=== PATIENT | male | born 1950 | race Caucasian/White ===

== ENCOUNTER 2018-04-03 18:56 | Observation (INO) ==
--- NOTE | 2018-04-03 19:51 | ED ---
HPI General Chief Complaint: Chest Pain Stated Complaint: chest pain Time Seen by Provider: 04/03/18 19:32 History of Present Illness HPI narrative: 67-year-old male with a past medical history of hypertension, coronary disease, peripheral artery disease and a long history of smoking presents to the emergency room complaining of chest pain that started at 1 PM today pain was midsternal radiating to the back with shortness of breath, palpitations, nausea, lightheadedness. Upon arrival to the ER patient denies chest pain at the moment. Patient was doing exertional work at home. 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 Complete Quality Measures for STEMI Alert Patients Related Data Home Medications Medication Instructions Recorded Confirmed Aspir-81 81 mg PO DAILY 04/03/18 04/03/18 amlodipine 5 mg PO HS 04/03/18 04/03/18 atorvastatin 20 mg PO HS 04/03/18 04/03/18 carvedilol 6.25 mg PO BID 04/03/18 04/03/18 clopidogrel 75 mg PO HS 04/03/18 04/03/18 losartan 100 mg PO HS 04/03/18 04/03/18 vit C-vit V-bjpeao-dhf-om-3 1 cap PO DAILY 04/03/18 04/03/18 [Ocuvite] Allergies Allergy/AdvReac Type Severity Reaction Status Date / Time No Known Allergies Allergy Unverified 04/03/18 19:08 Review of Systems Constitutional Denies fever(s) Eyes Denies change in vision ENT Denies headache(s) and Denies nasal congestion Cardiovascular Reports chest pain, Reports chest pain with activity, Reports rapid heart rate, Reports lightheadedness and Reports dyspnea Respiratory Denies dyspnea Gastrointestinal Denies abdominal pain Genitourinary Denies difficulty urinating Musculoskeletal Denies myalgias Integumentary/Breasts Denies rash Neurologic Denies headache(s) Psychiatric Denies depression Endocrine Denies polyuria Hematologic/Lymphatic Denies easy bruising [facility] Medical History Medical History AAA (abdominal aortic aneurysm) (Acute) Atrial fibrillation (Acute) Back pain (Acute) Bronchitis (Acute) Cataract (Acute) Chest pain (Acute) Coronary artery disease (Acute) Dental decay (Acute) Diverticulitis (Acute) Hypertension (Acute) Myocardial infarction (Acute) Snoring (Acute) Surgical History Surgical History History of coronary artery stent placement (Acute) Hx of cardiac cath (Acute) Social History Social History Substance History: No History of Abuse Second Hand Smoke Exposure: No Smoking Status: Heavy tobacco smoker Tobacco Type: Cigarettes How Often Do You Have a Drink Containing Alcohol: 4 or more times a week Recent Travel in [facility] within the Last 8 Weeks: No Recent Out of Country Travel within the Last 8 Weeks: No Immunization History Tetanus Immunization: <5 Years Hx Influenza Vaccine This Season: Yes Exam Narrative Exam Narrative: GENERAL: Patient is alert and oriented -3 SKIN: Focused skin assessment warm/dry. HEAD: Atraumatic. Normocephalic. EYES: Pupils equal and round. No scleral icterus. No injection or drainage. ENT: No nasal bleeding or discharge. Mucous membranes pink and moist. NECK: Trachea midline. No JVD. CARDIOVASCULAR: Regular rate and rhythm. No murmur appreciated. RESPIRATORY: No accessory muscle use. Clear to auscultation. Breath sounds equal bilaterally. GASTROINTESTINAL: Abdomen soft, non-tender, nondistended. Hepatic and splenic margins not palpable. MUSCULOSKELETAL: No obvious deformities. No clubbing. No cyanosis. No edema. NEUROLOGICAL: Awake and alert. No obvious cranial nerve deficits. Motor grossly within normal limits. Normal speech. PSYCHIATRIC: Appropriate mood and affect; insight and judgment normal. Course Reevaluation(s) Reevaluation #1: pt denies chest pain Time: 20:54 Initial Documented Vital Signs Temperature 98.5 F 04/03/18 19:08 Pulse Rate 78 04/03/18 19:08 Respiratory Rate 18 04/03/18 19:08 Blood Pressure 128/75 04/03/18 19:08 Pulse Oximetry 97 04/03/18 19:08 Last Documented Vital Signs Temperature 98.5 F 04/03/18 19:08 Pulse Rate 78 04/03/18 19:08 Respiratory Rate 18 04/03/18 19:08 Blood Pressure 128/75 04/03/18 19:08 Pulse Oximetry 97 04/03/18 19:08 Medical Decision Making MDM Narrative Medical decision making narrative: During the hospital course chest pain-free in the ED and had a negative cardiac workup.I will admit the patient to the chest pain center for observation and to rule out acute coronary artery disease Lab Data Result diagrams: 04/03/18 19:00 04/03/18 19:00 Lab Results 04/03/18 04/03/18 04/03/18 Range/Units 19:00 19:00 19:00 CBC w Diff Auto diff final WBC 8.1 (4.0-11.0) th/mm3 RBC 4.30 L (4.50-5.90) mil/mm3 Hgb 14.4 (13.0-17.0) gm/dL Hct 42.6 (39.0-51.0) % MCV 99.0 (80.0-100.0) fL MCH 33.6 (27.0-34.0) pg MCHC 34.0 (32.0-36.0) % RDW 12.8 (11.6-17.2) % Plt Count 198 (150-450) th/mm3 MPV 10.4 (7.0-11.0) fL Neut % (Auto) 62.3 (16.0-70.0) % Lymph % (Auto) 27.0 (9.0-44.0) % [place] % (Auto) 7.7 (0.0-8.0) % Eos % (Auto) 2.7 (0.0-4.0) % Baso % (Auto) 0.3 (0.0-2.0) % Neut # (Auto) 5.1 (1.8-7.7) th/mm3 Lymph # (Auto) 2.2 (1.0-4.8) th/mm3 [place] # (Auto) 0.6 (0.0-0.9) th/mm3 Eos # (Auto) 0.2 (0.0-0.4) th/mm3 Baso # (Auto) 0.0 (0.0-0.2) th/mm3 WBC Differential . Differential Comment . PT 10.7 (9.8-11.6) sec INR 1.1 Ratio APTT 25.2 (24.3-30.1) sec Sodium 140 (136-145) meq/L Potassium 3.9 (3.5-5.1) meq/L Chloride 108 H (98-107) meq/L Carbon Dioxide 23.1 (21.0-32.0) meq/L Anion Gap 9 (5-15) meq/L BUN 29 H (7-18) mg/dL Creatinine 1.20 (0.60-1.30) mg/dL Estimated GFR 60 L (>89) mL/min Random Glucose 96 (74-106) mg/dL Calcium 8.8 (8.5-10.1) mg/dL Magnesium 2.3 (1.5-2.5) mg/dL Total Creatine Kinase 106 (39-308) U/L CK-MB (CK-2) 2.4 (0.5-3.6) ng/mL Troponin I Less than 0.02 L (0.02-0.05) ng/mL Imaging Data Radiologist's impression: Chest X-Ray 04/03/18 19:41 CONCLUSION: The lungs are clear. Discharge Plan Discharge Disposition Patient Disposition: Transfer to [facility] Discharge Condition Condition: Fair Discharge Details Discharge Comment: Case was discussed with Dr. Flannery patient was admitted to the chest pain center Diagnosis: Chest pain Physicians Team ED Provider: Roni Ellis Primary Care Provider: Primary Care Massiel López Rxs /Orders / Referrals /Forms Prescriptions: No Action Aspir-81 81 mg PO DAILY RF: 0 carvedilol 6.25 mg Tablet 6.25 mg PO BID RF: 0 atorvastatin 20 mg Tablet 20 mg PO HS RF: 0 clopidogrel 75 mg Tablet 75 mg PO HS RF: 0 amlodipine 5 mg Tablet 5 mg PO HS RF: 0 losartan 100 mg Tablet 100 mg PO HS RF: 0 vit C-vit P-hexueh-yjm-om-3 [Ocuvite] 500-92-7-150 fm-rwie-ka-mg Capsule 1 cap PO DAILY RF: 0 Discharge Instructions Patient Printed Instructions: Chest Pain (ED) Status ED Status: With Doctor
--- NOTE | 2018-04-03 19:58 | XR ---
EXAM DATE: 04/03/2018 7:52 PM EDT AGE/SEX: 67 years / Male INDICATIONS: . Chest heaviness and feeling light headed. CLINICAL DATA: This is the patient's initial encounter. Patient reports that signs and symptoms have been present for 1 day and indicates a pain score of 0/10. MEDICAL/SURGICAL HISTORY: None. None. COMPARISON: POI, XR CHEST PA AND LAT, 08/17/2016. . FINDINGS: A single AP view of the chest demonstrates the lungs to be symmetrically mildly hyperaerated without evidence of mass, infiltrate or effusion. No evidence of pneumothorax. The cardiomediastinal contour s are unremarkable. Osseous structures are intact. CONCLUSION: The lungs are clear. Electronically signed by: Jose A Guidyr MD 04/03/2018 7:56 PM EDT
[2018-04-03 20:15] LABS: Baso % (Auto) 0.3 % (0.0-2.0); Eos # (Auto) 0.2 th/mm3 (0.0-0.4); Eos % (Auto) 2.7 % (0.0-4.0); Hematocrit 42.6 % (39.0-51.0); Hemoglobin 14.4 gm/dL (13.0-17.0); Lymph # (Auto) 2.2 th/mm3 (1.0-4.8); Mean Corpuscular Hemoglobin 33.6 pg (27.0-34.0); Mean Platelet Volume 10.4 fL (7.0-11.0); Mono # (Auto) 0.6 th/mm3 (0.0-0.9); Mono % (Auto) 7.7 % (0.0-8.0); Neut # (Auto) 5.1 th/mm3 (1.8-7.7); Neut % (Auto) 62.3 % (16.0-70.0); Platelet Count 198 th/mm3 (150-450); Red Cell Distribution Width 12.8 % (11.6-17.2); White Blood Count 8.1 th/mm3 (4.0-11.0)
[2018-04-03 20:26] LABS: Chloride 108 meq/L (98-107); Potassium 3.9 meq/L (3.5-5.1); Sodium 140 meq/L (136-145)
[2018-04-03 20:28] LABS: Calcium 8.8 mg/dL (8.5-10.1)
[2018-04-03 20:29] LABS: Anion Gap 9 meq/L (5-15); Blood Urea Nitrogen 29 mg/dL (7-18); Carbon Dioxide 23.1 meq/L (21.0-32.0); Glucose,Random 96 mg/dL (74-106); Magnesium 2.3 mg/dL (1.5-2.5)
[2018-04-03 20:32] LABS: Activated Partial Thrombo Time 25.2 sec (24.3-30.1); INR 1.1 Ratio; Prothrombin Time 10.7 sec (9.8-11.6)
[2018-04-03 20:33] LABS: Glomerular Filtration Rate 60 mL/min (>89)
[2018-04-03 20:36] LABS: Creatine Kinase 106 U/L (39-308)
[2018-04-03 20:48] LABS: Creatine Kinase MB 2.4 ng/mL (0.5-3.6)
[2018-04-03] MEDS ORDERED: Morphine Inj 4 MG/ML Vial IV.PUSH PRN (21:02)
[2018-04-03] MEDS ORDERED: Acetaminophen 500 MG Tablet PO PRN (21:02)
[2018-04-03] MEDS: Sod Chloride 0.9% Inj 1,000 ML IV.CONT SCH (22:03)
[2018-04-03 22:47] LABS: Troponin I 0.18 ng/mL (0.02-0.05)
[2018-04-04 01:51] LABS: Troponin I 0.19 ng/mL (0.02-0.05)
[2018-04-04] MEDS: Sod Chloride 0.9% Inj 1,000 ML IV.CONT SCH ×2 (08:13→18:43)
[2018-04-04] MEDS ORDERED: Heparin Drip 25,000 UNIT/250 ML BAG IV.CONT PRN (08:55)
[2018-04-04] MEDS ORDERED: Heparin 10,000 UNITS/10 ML Vial (for IV use) IV.PUSH STA (08:55)
[2018-04-04] MEDS ORDERED: Carvedilol 6.25 MG Tablet PO SCH (09:00)
[2018-04-04 09:27] LABS: Hematocrit 39.1 % (39.0-51.0); Hemoglobin 13.1 gm/dL (13.0-17.0); Mean Corpuscular HGB Conc 33.5 % (32.0-36.0); Mean Corpuscular Hemoglobin 33.8 pg (27.0-34.0); Mean Platelet Volume 9.4 fL (7.0-11.0); Platelet Count 151 th/mm3 (150-450); Red Blood Count 3.87 mil/mm3 (4.50-5.90); Red Cell Distribution Width 12.4 % (11.6-17.2); White Blood Count 5.4 th/mm3 (4.0-11.0)
[2018-04-04 09:35] LABS: Activated Partial Thrombo Time 24.8 sec (24.3-30.1); INR 1.1 Ratio
[2018-04-04] MEDS ORDERED: fentaNYL Citrate Inj 100 MCG/2 ML Ampul IV.PUSH SCH (12:00)
[2018-04-04] MEDS ORDERED: Sod Chloride 0.9% Inj 1,000 ML IV.CONT SCH ×2 (12:00→18:00)
--- NOTE | 2018-04-04 14:34 | P.HP ---
History of Present Illness Primary Care Physician: No Primary Care Physician History of Present Illness: 67-year-old male with a past medical history of hypertension, coronary artery disease, peripheral artery disease and a long history of smoking presents to the emergency room complaining of chest pain that started at 1 PM. The pain was midsternal radiating to the back. associated with shortness of breath, palpitations, nausea, lightheadedness. Patient denies chest pain at the moment. However he endorses chest pressure which has significantly improved. Patient was doing exertional work at home. Patient took 181 mg aspirin at home and 3x 81 mg aspirin on arrival. 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 Patient had cardiac cath with Dr Jensen in 2016 and had stent placed. plan for cardiac cath by Dr Jensen today Inpatient Certification: I certify that the inpatient services were ordered in accordance with Medicare regulations governing the order. This includes certification that hospital inpatient services are reasonable and necessary and in the case of services not specified as inpatient-only under 42 CFR 419.22(n), that they are appropriately provided as inpatient services in accordance to with the 2-midnight benchmark under 43 CFR 412.3(e) Review of Systems All other systems reviewed negative except as stated in HPI PMFSH - History History Provided By: Patient - Medical History Medical History: Medical History (Last Reviewed 04/04/18 @ 14:37 by Lizzy Chilel MD) AAA (abdominal aortic aneurysm) Atrial fibrillation Back pain Bronchitis Cataract Chest pain Coronary artery disease Dental decay Diverticulitis Hypertension Myocardial infarction Snoring - Surgical History Surgical History: Surgical History (Last Reviewed 04/04/18 @ 14:37 by Lizzy Chilel MD) History of coronary artery stent placement Hx of cardiac cath - Family History Family History: Family History (Last Updated 04/04/18 @ 17:03 by Lizzy Chilel MD) Other HLD (hyperlipidemia) HTN (hypertension) - Tobacco History Second Hand Smoke Exposure: Yes Tobacco Use In Past 30 Days: No Smoking Status: Heavy tobacco smoker Tobacco Type: Cigarettes - Alcohol History How Often Do You Have a Drink Containing Alcohol: 4 or more times a week - Substance Use History Substance History: No History of Abuse - Travel History Recent Travel in the [place] Within the Last 8 Weeks: No Recent Travel Out of the Country Within the Last 8 Weeks: No - Immunization History Tetanus Immunization: <5 Years Hx Influenza Vaccine This Season: Yes Medications and Allergies Active Medications: Active Medications Acetaminophen (Tylenol) 500 mg PO Q4H PRN PRN Reason: HEADACHE Hydrocodone Bitart/Acetaminophen ([place] 7.5/325) 1 tab PO Q4H PRN PRN Reason: PAIN SCALE 1 TO 7 Amlodipine Besylate (Norvasc) 5 mg PO HS [facility] Aspirin (Aspirin Chew) 81 mg PO DAILY [facility] Last Admin: 04/04/18 09:15 Dose: 81 mg Atorvastatin Calcium (Lipitor) 20 mg PO HS [facility] Carvedilol (Coreg) 6.25 mg PO BID [facility] Last Admin: 04/04/18 09:15 Dose: 6.25 mg Clopidogrel Bisulfate (Plavix) 75 mg PO HS [facility] Diphenhydramine HCl (Benadryl) 50 mg PO [employer] [facility] Stop: 04/08/18 11:59 Fentanyl Citrate (Fentanyl Inj) 50 mcg IV.PUSH [employer] [facility] Stop: 04/08/18 11:59 Sodium Chloride (Ns Inj) 1,000 mls @ 100 mls/hr IV.CONT .Q10H [facility] Last Admin: 04/04/18 08:13 Dose: 100 mls/hr Heparin Sodium/Dextrose (Heparin/D5w 25,000 U/250 Ml) 25,000 unit in 250 mls @ 0 mls/hr IV.CONT TITRATE PRN; Protocol PRN Reason: Per Protocol Last Admin: 04/04/18 09:31 Dose: 900 units/hr, 9 mls/hr Sodium Chloride (Ns Inj) 1,000 mls @ 100 mls/hr IV.CONT .Q10H [facility] Stop: 04/05/18 11:59 Last Admin: 04/04/18 13:20 Dose: Not Given Losartan Potassium (Cozaar) 100 mg PO HS [facility] Midazolam HCl (Versed Inj) 1 mg IV.PUSH [employer] [facility] Stop: 04/08/18 11:59 Morphine Sulfate (Morphine Inj) 2 mg IV.PUSH Q4H PRN PRN Reason: PAIN SCALE 8 TO 10 Ondansetron HCl (Zofran Inj) 4 mg IV.PUSH Q6H PRN PRN Reason: NAUSEA Sodium Chloride (Ns Flush) 2 ml IV.FLUSH BID [facility] Last Admin: 04/04/18 08:13 Dose: Not Given Sodium Chloride (Ns Flush) 2 ml IV.FLUSH PRN PRN PRN Reason: FLUSH AFTER USING IV ACCESS Allergies Allergy/AdvReac Type Severity Reaction Status Date / Time No Known Allergies Allergy Unverified 04/03/18 19:08 Home Medications Medication Instructions Recorded Confirmed Type Aspir-81 81 mg PO DAILY 04/03/18 04/03/18 History amlodipine 5 mg PO HS 04/03/18 04/03/18 History atorvastatin 20 mg PO HS 04/03/18 04/03/18 History carvedilol 6.25 mg PO BID 04/03/18 04/03/18 History clopidogrel 75 mg PO HS 04/03/18 04/03/18 History losartan 100 mg PO HS 04/03/18 04/03/18 History vit C-vit I-ipmgcm-hhl-om-3 1 cap PO DAILY 04/03/18 04/03/18 History [Ocuvite] Exam Vital signs: Vital Signs 04/03/18 19:08 04/03/18 21:14 04/03/18 21:30 Temperature 98.5 F Pulse Rate 78 66 Respiratory Rate 18 18 Blood Pressure 128/75 123/62 Pulse Oximetry 97 95 97 04/03/18 22:21 04/04/18 01:43 04/04/18 04:32 Temperature 96.8 F L 96.1 F L 97.3 F L Pulse Rate 71 60 62 Respiratory Rate 18 18 18 Blood Pressure 148/79 H 129/70 130/71 Pulse Oximetry 96 97 98 04/04/18 07:43 04/04/18 08:00 04/04/18 08:54 Temperature 97.4 F L Pulse Rate 58 L 54 L Respiratory Rate 21 Blood Pressure 150/83 H Pulse Oximetry 98 96 Intake & Output 04/03/18 04/04/18 04/04/18 18:59 06:59 18:59 Intake Total 400 / 400 1240 / 1240 Output Total 800 / 800 Balance -400 / -400 1240 / 1240 Weight 76.5 kg Intake: IV 1000 / 1000 NS Inj 1,000 ML @ 100 mls/hr IV 1000 / 1000 .CONT .Q10H [facility] Rx#:[id number] Oral 200 / 200 240 / 240 Other 200 / 200 Output: Urine 800 / 800 Other: Weight On Admission 76.6 kg Narrative: GENERAL: Elderly patient in bed appears in nad. SKIN: Warm and dry. HEAD: Atraumatic. Normocephalic. EYES: Pupils equal and round. No scleral icterus. No injection or drainage. ENT: No nasal bleeding or discharge. Mucous membranes pink and moist. NECK: Trachea midline. No JVD. CARDIOVASCULAR: Regular rate and rhythm. RESPIRATORY: No accessory muscle use. Clear to auscultation. Breath sounds equal bilaterally. GASTROINTESTINAL: Abdomen soft, non-tender, nondistended. Hepatic and splenic margins not palpable. MUSCULOSKELETAL: Extremities without clubbing, cyanosis, or edema. No obvious deformities. NEUROLOGICAL: Awake and alert. No obvious cranial nerve deficits. Motor grossly within normal limits. Five out of 5 muscle strength in the arms and legs. Normal speech. PSYCHIATRIC: Appropriate mood and affect; insight and judgment normal. Results - Labs CBC & Chem 7: 04/04/18 09:12 04/03/18 19:00 Labs: Laboratory Results - last 24 hr 04/03/18 04/03/18 04/03/18 19:00 19:00 19:00 CBC w Diff Auto diff final WBC 8.1 RBC 4.30 L Hgb 14.4 Hct 42.6 MCV 99.0 MCH 33.6 MCHC 34.0 RDW 12.8 Plt Count 198 MPV 10.4 Neut % (Auto) 62.3 Lymph % (Auto) 27.0 [place] % (Auto) 7.7 Eos % (Auto) 2.7 Baso % (Auto) 0.3 Neut # (Auto) 5.1 Lymph # (Auto) 2.2 [place] # (Auto) 0.6 Eos # (Auto) 0.2 Baso # (Auto) 0.0 WBC Differential . Differential Comment . PT 10.7 INR 1.1 APTT 25.2 Sodium 140 Potassium 3.9 Chloride 108 H Carbon Dioxide 23.1 Anion Gap 9 BUN 29 H Creatinine 1.20 Estimated GFR 60 L Random Glucose 96 Calcium 8.8 Magnesium 2.3 Total Creatine Kinase 106 CK-MB (CK-2) 2.4 Troponin I Less than 0.02 L 04/03/18 04/04/18 04/04/18 22:15 01:00 09:12 CBC w Diff WBC RBC Hgb Hct MCV MCH MCHC RDW Plt Count MPV Neut % (Auto) Lymph % (Auto) [place] % (Auto) Eos % (Auto) Baso % (Auto) Neut # (Auto) Lymph # (Auto) [place] # (Auto) Eos # (Auto) Baso # (Auto) WBC Differential Differential Comment PT INR APTT Sodium Potassium Chloride Carbon Dioxide Anion Gap BUN Creatinine Estimated GFR Random Glucose Calcium Magnesium Total Creatine Kinase 88 81 CK-MB (CK-2) Troponin I 0.18 H 0.19 H 0.12 H 04/04/18 04/04/18 09:12 09:12 CBC w Diff WBC 5.4 RBC 3.87 L Hgb 13.1 Hct 39.1 MCV 101.0 H MCH 33.8 MCHC 33.5 RDW 12.4 Plt Count 151 MPV 9.4 Neut % (Auto) Lymph % (Auto) [place] % (Auto) Eos % (Auto) Baso % (Auto) Neut # (Auto) Lymph # (Auto) [place] # (Auto) Eos # (Auto) Baso # (Auto) WBC Differential Differential Comment PT 11.0 INR 1.1 APTT 24.8 Sodium Potassium Chloride Carbon Dioxide Anion Gap BUN Creatinine Estimated GFR Random Glucose Calcium Magnesium Total Creatine Kinase CK-MB (CK-2) Troponin I - Imaging Impressions Chest X-Ray 04/03/18 19:41 CONCLUSION: The lungs are clear. Caprini VTE Risk Assessment Caprini VTE Risk Assessment: Moderate/High Risk (score >= 2) Caprini Risk Assessment Model: Point Value = 1 Point Value = 2 Point Value = 3 Point Value = 5 Age 41-60 Minor surgery BMI > 25 kg/m2 Swollen legs Varicose veins or History of unexplained or recurrent spontaneous Oral contraceptives or hormone replacement Sepsis (< 1 month) Serious lung disease, including pneumonia (< 1 month) Abnormal pulmonary function Acute myocardial infarction Congestive heart failure (< 1 month) History of inflammatory bowel disease Medical patient at bed rest Age 61-74 Arthroscopic surgery Major open surgery (> 45 min) Laparoscopic surgery (> 45 min) Malignancy Confined to bed (> 72 hours) Immobilizing plaster cast Central venous access Age >= 75 History of VTE Family history of VTE Factor V Leiden Prothrombin [id number] Lupus anticoagulant Anticardiolipin antibodies Elevated serum homocysteine Heparin-induced thrombocytopenia Other congenital or acquired thrombophilia Stroke (< 1 month) Elective arthroplasty Hip, pelvis, or leg fracture Acute spinal cord injury (< 1 month) Prophylaxis Regimen: Total Risk Factor Score Risk Level Prophylaxis Regimen 0-1 Low Early ambulation 2 Moderate Order ONE of the following: *Sequential Compression Device (SCD) *Heparin 5000 units SQ BID 3-4 Higher Order ONE of the following medications: *Heparin 5000 units SQ TID *Enoxaparin/Lovenox 40 mg SQ daily (WT < 150 kg, CrCl > 30 mL/min) *Enoxaparin/Lovenox 30 mg SQ daily (WT < 150 kg, CrCl > 10-29 mL/min) *Enoxaparin/Lovenox 30 mg SQ BID (WT < 150 kg, CrCl > 30 mL/min) AND/OR *Sequential Compression Device (SCD) 5 or more Highest Order ONE of the following medications: *Heparin 5000 units SQ TID (Preferred with Epidurals) *Enoxaparin/Lovenox 40 mg SQ daily (WT < 150 kg, CrCl > 30 mL/min) *Enoxaparin/Lovenox 30 mg SQ daily (WT < 150 kg, CrCl > 10-29 mL/min) *Enoxaparin/Lovenox 30 mg SQ BID (WT < 150 kg, CrCl > 30 mL/min) AND *Sequential Compression Device (SCD) Assessment and Plan - Plan Acute Chest pain AAA (abdominal aortic aneurysm) Atrial fibrillation Coronary artery disease Hypertension H/o Myocardial infarction History of coronary artery stent placement Hx of cardiac cath HLD check lipid panel. continue statin , might need increased in dose . Trop neg so far trend trops EKG without changes from previous Monitor on tele Continue ASA, plavix, carvedilol, statin , amlodipine losartan Follows with Dr Jensen cardiology NPO plan for cardiac cath by Dr Jensen Heparin drip ] Chronic Back pain DVT ppx heparin
[2018-04-04] MEDS ORDERED: Heparin/NS PF Inj 1,500 ML ONE (16:32)
[2018-04-04] MEDS ORDERED: Heparin 10,000 UNITS/10 ML Vial (for IV use) ONE (16:37)
[2018-04-04] MEDS ORDERED: fentaNYL Citrate Inj 100 MCG/2 ML Ampul ONE (16:43)
--- NOTE | 2018-04-04 17:26 | CATHPROC ---
[facility] HIS Report Study Information Study Number Scheduled Start Study Start [id number] 04/04/2018 Apr 04 2018 4:31PM Referring Institution Admit Source Facility Department 1 Emergency department [facility] - Yeast Fermentation Attendant Physician and Clinical Staff Initial Richie Dillon Tool Carrier Blaise Purvis,SCOTTIE Tool Carrier Deya Vickers,SCOTTIE Recorder Deborah Lopez,RT(R) (BS) Scrub Roseann Messer RCIS TECH2 Procedures Performed Procedure Location (Site) Vessel Name Coronary Angiograms LCA Left Coronary Coronary Angiograms RCA Right Coronary L Heart Cath LV Gram-hand inj. LV LV Ventricle Wire insertion Fem Art (right) Femoral Art Equipment Time Supervisor Self Service Store Description Size Mfg Part Number Used/Scraped TRANSDUCER, TRUWAVE [id number] 16:35 [email or web address] * Used W/STOCKCOCK *[id number] [id number] *[id number] [id number] *[id number] 16:35 MALLINCKRODT SYRINGE, ANGIOMAT 150ML 150ML *[id number] Used [facility] Andre Phillipe CONCEPT DRAPE, RADIAL FEMORAL FULL 16:35 * [id number] *[id number] Used DEVELOPMENT BODY [id number] 16:35 PureWRX BLANKET,WARM AIR CCL * Used *[id number] 16:35 PureWRX PACK, CCL CUSTOM * Used *[id number] 16:35 PureWRX SUPPORT, ARTERIAL ADULT 45920 *[id number] Used [id number] 16:35 [place] PACER PEN, SKIN DUAL W/ RULER * Used *[id number] BAND, RADIAL COMPRESSION TR [id number] 17:12 Akella 24CM Used SHORT 24 *[id number] SHEATH, FR6 RADIAL PRELUDE 16:35 Akella FR 6 [id number] Used EASE 11CM [id number] 16:35 Akella WIRE, EXCHANGE 260CM 3MMJ 260CM Used *[id number] 16:35 NAMIC MANIFOLD, 4 PORT * Used *[id number] 16:35 NYCOMED OMNIPAQUE, 350 MG, 150ML 150ML [id number] Used CATHETER, FR5 OPTITORQUE [id number] 16:56 TERUMO MEDICAL FR 5 Used RADIAL TIG 4.0 *[id number] History: Current Medications Medication Dosage/Unit Route Frequency Last Date/Time Taken Beta Mario ASA History: Allergies Allergy Reaction No Known Allergies History: Risk Factors Family History of Hypertension Dyslipidemia Previous IN Previous Heart Failure Premature CAD Yes Yes Yes Yes No Prior Valve Prior PCI Prior PCIDate Prior CABG Surgery No Yes 09/19/2015 No Cerebrovascular Peripheral Artery Chronic Lung On Dialysis Diabetes Disease Disease Disease No No Yes No No History: Stress Tests Stress or Imaging Studies Performed No History: Other Current Smoker Method Packs a Day Years Used Pack Years Yes Cigarettes 1 50 50 Labs Hgb (g/dl) Hct (%) WBC (l/cumm) Platelets (thousands) 11.60-17.00 35.00-51.00 4.00-11.00 150.00-450.00 13.1 39.1 5.4 151 Glucose (mg/dl) BUN (mg/dl) Creatinine (mg/dl) BUN:Creatinine (1:x) 74.00-106.00 7.00-18.00 0.50-1.30 10.00-20.00 96 29 1.2 24.2 Na (meq/l) K (meq/l) 136.00-145.00 3.50-5.10 140 3.9 INR (PTT:PT) 0.90-1.10 1.1 Troponin I (ng/ml) CPK-MB (ng/ML) 0.02-0.05 0.50-3.60 0.12 Not Drawn Medication Medication Total Dose (Bolus/Oral) Medication Total Dosage/Unit 1% XYLOCAINE 1 mL FENTANYL 50 mcg RADIAL COCKTAIL 1 units VERSED 2 mg Medications (Bolus/Oral) Medication Time Given Dosage/Unit Administered By Reason VERSED 04/04/2018 4:53:39 PM 2 mg Blaise Purvis 2 mg VERSED given in lab by Blaise Purvis RN in Left Antecubital via Peripheral IV. Ordered by Richie Jensen. FENTANYL 04/04/2018 4:53:51 PM 50 mcg Blaise Purvis 50 mcg FENTANYL given in lab by Blaise Purvis RN in Left Antecubital via Peripheral IV. Ordered by Richie Lynch. 1% XYLOCAINE 04/04/2018 4:54:17 PM 1 mL Richie Jensen 1 mL 1% XYLOCAINE given in lab by Richie Jensen in Right Radial via Subcutaneous. Ordered by Chris Jensen enn. Ntg 200mcg Verapamil 2.5mg Heparin RADIAL COCKTAIL 04/04/2018 4:55:32 PM 1 units Richie Jensen 2500U 1 units RADIAL COCKTAIL given in lab by Richie Jensen via Radial. Ordered by Richie Jensen. Reason: Ntg 200mcg Heparin 2500U. Medication (Drip) Medication Time Given Dosage/Unit Concentration/Unit Diluent (ml) Solution IV Solutions 04/04/2018 4:38:01 PM 0 mL (IV) 500 NaCl .9 IV Solutions given in lab by Blaise Purvis RN in Left Antecubital via Peripheral IV. Pump/Drip Flow = 20 ml/hr using NaCl .9. Ordered by Richie Jensen. Chronological Log Time Study Chronological Log 16:31:06 Patient arrived via Bed. 16:31:08 Patient Name, D.O.B, / Armband Verified By R.N. 16:31:09 Consent signed by the physician and the patient and verified by the Yeast Fermentation Attendant staff. Vitals capture started with the following parameters, Patient=Adult, Interval=5 min, Initial Jrdygktl=105 mmHg, 16:35:39 Deflation Rate=5 mmHg, Cuff placed on Left Arm 16:35:48 Pre-op and post- op instructions given; patient acknowledges understanding of instruction s. 16:36:46 Verbal Stimulation=2 Physical Stimulation=2 Airway=2 Respiration=2 TOTAL=8. (0=absent, 1= limited, 2=present) 16:36:54 Presedation assessment performed by Yeast Fermentation Attendant RN. 16:36:57 Patient has been NPO for More than 6Hrs. 16:37:00 Skin Breakdown-none present per patient. 16:37:03 HR=50 bpm, FGFN=920/84 mmhg, SpO2=98.0 %, Resp=11 B/min, Cueva=2 16:37:23 A # 20 IV was noted in the Antecubital (left). Grade = 0 IV Solutions given in lab by Blaise Purvis RN in Left Antecubital via Peripheral IV. Pump/Dri p Flow = 20 ml/hr using 16:38:01 NaCl .9. Ordered by Richie Jensen. 16:38:23 History and physical on the chart or being dictated. 16:39:28 Reference ECG taken 16:39:31 Bilateral groins and right radial prepped with 2% chlorhexidine, and draped after a 3 min francis waiting time. 16:41:27 HR=49 bpm, PWPX=575/79 mmhg, SpO2=99.0 %, Resp=13 B/min, Cueva=2 16:45:48 MD arrived 16:46:30 HR=49 bpm, IMJA=350/76 mmhg, SpO2=98.0 %, Resp=14 B/min, Pain=0, Maria Elena=10, Cueva=2 16:51:27 HR=57 bpm, RZXY=946/75 mmhg, SpO2=98.0 %, Resp=13 B/min, Pain=0, Maria Elena=10, Cueva=2 16:52:47 Pressure channel 1 zeroed. Time Out. Correct patient, correct procedure, correct physician, labs, allergies, and equipme nt verified with seed laboratory assistant 16:53:10 team present. Fire risk assesment completed (see hard stop sheet for coding). Time Out Co ncurred by MD and individual staff in procedure. 16:53:36 Case Start 16:53:39 2 mg VERSED given in lab by Blaise Purvis RN in Left Antecubital via Peripheral IV. Ordered by Richie Jensen. 16:53:51 50 mcg FENTANYL given in lab by Blaise Purvis RN in Left Antecubital via Peripheral IV. Ord ered by Richie Jensen. 16:54:17 1 mL 1% XYLOCAINE given in lab by Richie Jensen in Right Radial via Subcutaneous. Ordered by Richie Jensen. 16:54:30 Access site was right Radial Artery. A SHEATH, FR6 RADIAL PRELUDE EASE 11CM FR 6 was advanced into the Radial (right) using the Perc utaneous 16:54:44 technique. 16:55:17 Activated Clotting Time Drawn 1 units RADIAL COCKTAIL given in lab by Richie Jensen via Radial. Ordered by Richie Jensen. Reaso n: Ntg 200mcg 16:55:32 Heparin 2500U. 16:56:24 HR=55 bpm, VGJG=686/80 mmhg, SpO2=97.0 %, Resp=16 B/min, Pain=0, Maria Elena=10, Cueva=2 A CATHETER, FR5 OPTITORQUE RADIAL TIG 4.0 FR 5 was advanced over a wire. OMNIPAQUE, 350 MG, 150 ML 150ML 16:56:30 was used for injections. 16:59:01 The LCA was injected and visualized at various angles. OMNIPAQUE, 350 MG, 150ML 150ML used . 16:59:24 ACT (Normal Range 90-180) = 204 17:01:19 HR=54 bpm, MBTH=200/77 mmhg, SpO2=95.0 %, Resp=19 B/min, Pain=0, Maria Elena=10, Cueva=2 17:01:55 The RCA was injected and visualized at various angles. OMNIPAQUE, 350 MG, 150ML 150ML used . After removing the current catheter a MPA-2 INFINITI CATHETER FR 6 was advanced over a WIRE, EX CHANGE 260CM 17:02:25 3MMJ 260CM. 17:05:49 Catheter was removed A PIGTAIL STR INFINITI CATHETER FR 6 was advanced over a wire. OMNIPAQUE, 350 MG, 150ML 150ML w as used for 17:05:50 injections. 17:06:20 HR=57 bpm, ZPNP=968/73 mmhg, SpO2=92.0 %, Resp=16 B/min, Pain=0, Maria Elena=10, Cueva=2 17:07:08 Wire removed Recorded Pressure: LV, HR=54, Condition=Condition 1 17:07:23 (Left Ventricle) LV 144/2/10 17:07:44 The LV was manually injected with 8 cc's and visualized. OMNIPAQUE, 350 MG, 150ML 150ML use d. Recorded Pressure: LV, Ao, HR=56, Condition=Condition 1 17:08:39 (Left Ventricle) LV 144/-71/7, (Aorta) Ao 146/64/97 17:09:07 A WIRE, EXCHANGE 260CM 3MMJ 260CM was inserted via Fem Art (right). 17:09:24 Catheter was removed 17:09:25 Wire removed 17:09:36 Case End (Physician broke scrub) 17:09:44 Catheter(s) removed without difficulty 17:09:48 No case complications noted. 17:09:50 Bedside Report will be given. 17:09:53 A Left Heart Cath was performed. 17:11:17 HR=55 bpm, XBEL=255/78 mmhg, SpO2=95.0 %, Resp=9 B/min, Pain=0, Maria Elena=10, Cueva=2 Radial Compression Device Used. 18 mLs of air placed in BAND, RADIAL COMPRESSION TR SHORT 24 24 CM. Affected 17:12:19 hand 95 % O2 saturation. 17:16:53 HR=50 bpm, WMRF=790/74 mmhg, SpO2=94.0 %, Resp=12 B/min, Pain=0, Maria Elena=10, Cueva=2 17:17:20 Vitals capture stopped. 17:19:33 [facility] called. Spoke to Aubrie. 17:25:51 [facility] Study - Contrast Media Used In Study Contrast Total Opened (mL) Total Used (mL) Total Wasted (mL) Omnipaque 100 100 0 End Study - Maximum Contrast Load Max Contrast Load (mL) 318.8 End Study - Radiation Exposure Fluoro Time (minutes) 5.9 End Study - Sheaths Sheaths Pulled By Sheath Hold Time (min) Roseann Messer End Study - Patient Disposition Complications Transferred To Interventional Outcome No Critical Care Bed No attempt made
--- NOTE | 2018-04-04 17:32 | MA ---
cc: Richie Jensen MD DATE: 04/04/2018 PROCEDURE PERFORMED: Left heart catheterization, selective coronary angiography, left ventriculography. PROCEDURE NOTES: The patient was brought to the cardiac catheterization laboratory in a fasting state after having signed informed consent. The right radial region was prepped and draped as per policy and anesthetized with 1% lidocaine. Arterial access was obtained via the right radial artery and a 6-Belarusian sheath placed. Coronary arteriography was performed using a Hershey catheter. Left ventriculography was done using a pigtail catheter. There were no apparent, immediate complications. His arteriotomy site was closed with a radial artery compression band to achieve good hemostasis. HEMODYNAMIC DATA: Left ventricle 144 with an end diastolic pressure of 7, aorta 146/64 with a mean of 97. There was no significant transvalvular aortic gradient on pullback of the pigtail catheter. CORONARY ARTERIOGRAPHY: The left main is a large vessel with probably up to 25% stenosis near its ostium. The disease is probably eccentric as well. The left anterior descending is a relatively small caliber vessel giving rise to a small diagonal. There is up to 40% proximal LAD stenosis and 50% mid stenosis in 2 areas. The distal LAD is normal. The diagonal has up to 15% proximal stenosis. The left circumflex is a small vessel with no definite disease. The right coronary artery demonstrates a stent in its proximal portion. The stent is widely patent. There is overall diffuse mild disease in the proximal to mid right coronary artery, resulting in up to 20% stenosis. LEFT VENTRICULOGRAPHY: Contrast injection of the left ventricle is somewhat suboptimal. No definite segmental wall motion abnormalities are seen. Ejection fraction is estimated at 50%. CONCLUSIONS: 1. Mild to moderate 2-vessel coronary artery disease with no definite high grade stenosis, mild left main disease. 2. Overall, low normal left ventricular systolic function with ejection fraction estimated at 50%. MD DAYANA Glass/SAMANTA , 05:17 PM , 05:30 PM [facility]
--- NOTE | 2018-04-04 17:41 | MB ---
cc: Richie Jensen MD DATE: 04/04/2018 REASON FOR CONSULTATION: Chest pain. HISTORY OF PRESENT ILLNESS: The patient is a 67-year-old white male with a history of coronary artery disease, hypertension, hyperlipidemia, peripheral vascular disease, abdominal aortic aneurysm who presented to the [facility] with chest pain. Yesterday at about 1:00 p.m., he developed a substernal and left-sided chest discomfort described as a "pressure," associated with mild shortness of breath and lightheadedness. The chest discomfort persisted in a fairly constant fashion for the next 6 hours. There was no pleurisy. He also denies syncope, near syncope, palpitations, pedal edema, and paroxysmal nocturnal dyspnea. Troponin levels were checked and found to be slightly abnormal. PAST MEDICAL HISTORY: 1. Abdominal aortic aneurysm 3.2 cm in size by ultrasound 11/16/2017. 2. Coronary artery disease, status post inferior ST elevation myocardial infarction and stent of the right coronary artery with a 2.75 x 32 mm Promus stent 10/05/2015. 3. Hyperlipidemia. 4. Hypertension. 5. Peripheral vascular disease with a CT angiogram 11/16/2017 showing total occlusion of his left superficial femoral artery with reconstitution of flow at the popliteal level. CARDIAC MEDICATIONS AT HOME: 1. Atorvastatin 20 mg at bedtime. 2. Losartan 100 mg daily. 3. Plavix 75 mg daily. 4. Amlodipine 5 mg daily. 5. Carvedilol 6.25 mg b.i.d. 6. Aspirin 81 mg daily. ALLERGIES: NO KNOWN DRUG ALLERGIES. FAMILY HISTORY: Noncontributory. SOCIAL HISTORY: The patient denies alcohol abuse. He smokes a little less than a pack of cigarettes per day. REVIEW OF SYSTEMS: As in the history of present illness, otherwise negative or noncontributory. He also denies headache, abdominal pain, melena, and dyspepsia. PHYSICAL EXAMINATION: VITAL SIGNS: Blood pressure 144/64 with a pulse of 50, respirations 15. GENERAL: He is a well-developed, well-nourished white male, in no acute distress. NECK: Jugular venous pressure is normal. Carotid pulses are 2+ bilaterally and without bruits. CHEST: Reveals clear lungs barrera. CARDIAC: He has a bradycardic, regular rhythm with a grade I/ systolic murmur heard at the base of the heart. The S2 heart sound is normal. No gallop is audible. ABDOMEN: He has a soft, nontender abdomen. Bowel sounds are present. There is no definite hepatosplenomegaly. EXTREMITIES: Reveals no clubbing, cyanosis or edema. Peripheral pulses are normal throughout. LABORATORY DATA: Includes normal CBC. Troponin 0.19. Potassium 3.9, BUN 29, creatinine 1.20. IMAGING STUDIES: Chest x-ray shows no acute disease. EKG shows sinus rhythm, inferior infarct, old. IMPRESSION: Somewhat atypical chest pain in this 67-year-old white male with a history of coronary artery disease, hypertension, hyperlipidemia, peripheral vascular disease. Despite almost 6 hours of constant chest discomfort yesterday, CK levels are negative for myocardial infarction. EKG shows no acute ST segment or T-wave changes. On the other hand, he did have a slight rise in his troponin levels. Given the instability of his symptoms and the slightly abnormal troponin levels, he has been recommended cardiac catheterization. RECOMMENDATIONS: 1. Cardiac catheterization today. 2. Continue his usual home cardiac medications. MD DAYANA Glass/SAMANTA , 05:22 PM , 05:40 PM MICHAELA
[2018-04-04] MEDS ORDERED: Iohexol 350 MG/ML 100 ML Vial (for Cath Lab) IVCONTRAST ONE (20:49)
--- NOTE | 2018-04-04 20:49 | ECG ---
Date Performed: 04/03/2018 Time Performed: 22:12:20 PTAGE: 67 years EKG: Sinus rhythm WITH FIRST DEGREE AV BLOCK INFERIOR MYOCARDIAL INFARCTION ABNORMAL ECG PREVIOUS TRACING : 04/03/2018 18.57 No significant change when compared with previous DOCTOR: Valeria Mendoza Interpretating Date/Time 04/04/2018 20:48:42
--- NOTE | 2018-04-04 20:53 | ECG ---
Date Performed: 04/04/2018 Time Performed: 00:57:28 PTAGE: 67 years EKG: Sinus rhythm WITH FIRST DEGREE AV BLOCK INFERIOR MYOCARDIAL INFARCTION ABNORMAL ECG PREVIOUS TRACING : 04/03/2018 22.12 No significant change when compared with previous DOCTOR: Valeria Mendoza Interpretating Date/Time 04/04/2018 20:51:25
--- NOTE | 2018-04-04 20:57 | ECG ---
Date Performed: 04/03/2018 Time Performed: 18:57:04 PTAGE: 67 years EKG: Sinus rhythm INFERIOR MYOCARDIAL INFARCTION ABNORMAL ECG INTERPRETATION BASED ON A DEFAULT AGE OF 40 YEARS PREVIOUS TRACING : 10/06/2015 07.29 No significant change when compared with previous DOCTOR: Valeria Mendoza Interpretating Date/Time 04/04/2018 20:56:53
[2018-04-04] MEDS ORDERED: amLODIPine 5 MG Tablet PO SCH (21:00)
[2018-04-04 21:44] LABS: Chol/HDL Ratio 2.8 Ratio; HDL Cholesterol 38.9 mg/dL (40.0-60.0)
== END 2018-04-04 20:50 | disposition home or self-care (01) ==
LOC: PHED 18:56 → HIMC 18:56 → PHEDA 18:56 → PH3 21:49 → HIMC 04-04 11:53
PROVIDERS: ADMIT Hospitalist; ATTEND Hospitalist